=== PATIENT | female | born 1950 | race Caucasian/White ===

== ENCOUNTER 2023-09-11 14:01 | Emergency (ER) | payer MEDICAID ==
[~2023-09-11] VITALS: Ht 170.2 cm; Wt 75.0 kg
[2023-09-11 14:11] VITALS: O2SAT 99
[2023-09-11] MEDS ORDERED: IBUPROFEN 400MG TABLET PO ONE (14:45)
[2023-09-11 17:08] VITALS: BP 124/70; PULSE 84; RESP 18; TEMP 98.4
[2023-09-11] MEDS: IBUPROFEN 400MG TABLET PO NR (17:08)
== END 2023-09-11 17:08 | disposition home or self-care (01) ==
LOC: ER 14:01
DX: M25.562 Pain in left knee (principal); I10 Essential (primary) hypertension
CPT/HCPCS: 73560; 99283